=== PATIENT | male | born 1945 | race Caucasian/White ===

== ENCOUNTER 2023-05-21 08:00 | Outpatient (CLI) | payer MEDICARE, BC, OTHER | END 2023-05-21 23:59 | disposition home or self-care (01) | LOC: LAB.N 08:00 | PROVIDERS: ATTEND Physician Assistant | DX: R05.9 Cough, unspecified (principal); Z20.822 Contact with and (suspected) exposure to COVID-19 ==

== ENCOUNTER 2023-05-21 08:15 | Outpatient (CLI) | payer MEDICARE, BC, OTHER ==
--- NOTE | 2023-05-21 10:33 | XRAY Report ---
PROCEDURE: Chest 2 View X-Ray INDICATIONS: COUGH TECHNIQUE: 2 views of the chest were acquired. COMPARISON: None. FINDINGS: Surgical changes and devices: Sternotomy wires Lungs and pleura: No pleural effusions or pneumothorax. Lungs are clear. Mediastinum: Mediastinal contours appear normal. Heart size is normal. Bones and chest wall: No suspicious bony lesions. Overlying soft tissues appear unremarkable. IMPRESSION: No acute radiographic abnormality. Reviewed by: Doron Mujica MD on 05/21/2023 10:32 AM PDT Approved by: Doron Mujica MD on 05/21/2023 10:32 AM PDT Station ID: [id number]
== END 2023-05-21 08:30 | disposition home or self-care (01) ==
LOC: DI.N 08:15
PROVIDERS: ATTEND Physician Assistant
DX: R05.9 Cough, unspecified (principal); Z20.822 Contact with and (suspected) exposure to COVID-19